=== PATIENT | male | born 1935 | race Caucasian/White ===

== ENCOUNTER 2020-06-20 15:10 | Day surgery (SDCO) | payer MEDICARE, OTHER ==
[~2020-06-20 15:10] MED LIST: LIPITOR20 MG PO; METFORMIN HCL500 MG PO; MICRONASE5 MG PO; ZESTRIL5 MG PO; ZOFRAN ODT4 MG PO
[2020-06-20 16:12] LABS: BASOPHIL 0.4 % (0-2); EOSINOPHIL 1.6 % (0-7); HCT 36.3 % (42.0-52.0); HGB 11.4 g/dl (13.2-18.0); MCH 28.6 pg (25.0-31.0); MCHC 31.4 g/dL (32.0-36.0); MCV 91.2 fL (78.0-100.0); MONOCYTE 5.3 % (0-12); MPV 10.1 fL (6.0-9.5); NEUTROPHIL 83.4 % (41-80); NRBC 0; PLT 193 K/uL (150-400); RBC 3.98 M/uL (4.70-6.00); RDW 14.4 % (11.5-14.0); WBC 11.8 K/uL (4.0-10.5)
[2020-06-20 16:16] LABS: INR 1.1 (0.9-1.2); PROTHROMBIN TIME 13.5 SECONDS (11.4-13.6); PTT 26.3 SECONDS (22.2-34.7)
[2020-06-20 16:26] LABS: ALBUMIN 3.4 g/dL (3.4-5.0); BILIRUBIN - TOTAL 0.5 mg/dL (0.2-1.0); BUN/CREAT RATIO (CALC) 17.3 RATIO; CREATININE 1.1 mg/dL (0.67-1.17); GLOBULIN (CALCULATION) 3.7 g/dL; POTASSIUM 4.5 mmol/L (3.5-5.1); TOTAL PROTEIN 7.1 g/dL (6.4-8.2)
[2020-06-20 16:30] LABS: LACTIC ACID 1.5 mmol/L (0.4-1.9)
[2020-06-20 17:35] LABS: BILIRUBIN NEGATIVE (NEGATIVE); BLOOD NEGATIVE Ery/uL (NEGATIVE); CLARITY CLEAR (CLEAR); COLOR YELLOW (YELLOW); GLUCOSE (U) NORMAL (NORMAL); LEUKOCYTES NEGATIVE Leu/uL (NEGATIVE); NITRITE NEGATIVE (NEGATIVE); PROTEIN TRACE (LOW) mg/dL (NEGATIVE); SPECIFIC GRAVITY >=1.030 (1.001-1.030); UROBILINOGEN 0.2 mg/dL (0.2-1.0)
[2020-06-20 17:42] LABS: BACTERIA TRACE
[2020-06-20] MEDS ORDERED: MAG-OXIDE 400M400 MG PO (21:46)
[2020-06-20] MEDS ORDERED: VITAMIN D21250 MCG PO (21:49)
[2020-06-20] MEDS ORDERED: BAYER CHEWABLE81 MG PO (21:50)
[2020-06-20] MEDS ORDERED: GLIPIZIDE ER5 MG PO (21:50)
[2020-06-20] MEDS ORDERED: ANTIVERT12.5 MG PO (21:51)
[2020-06-20] MEDS ORDERED: ANTIVERT25 MG PO (21:51)
--- NOTE | 2020-06-21 04:05 | NUR ---
CALLED BY FIDEL OLSON TO SIT WITH PATIENT UPON HER INSISTANCE THAT HE NEEDED A SITTER. PATIENT HAS SLEPT THROUGH THE NIGHT AND HAS ONLY MOVED TO ADJUST HIMSELF IN THE BED. I HAVE WOKE PATIENT SEVERAL TIMES AND HE HAS BEEN COMPLIANT WITH CARE. PATIENT ALLOWED ME TO START A IV, FLUIDS, TELEMETRY MONITORING, BLOOD GLUCOSE MONITORING AND ADMINISTER MEDICATION. PATIENT WAS WOKE UP FOR AN EKG AND VITALS Q4HR, HE HAS BEEN COMPLIANT WITH CARE. PATIENT HAS NOT BEEN COMBATIVE HE HAS STATED SOME NASTY WORDS BUT HAS NOT ACTED ON ANYTHING. DESPITE HIS NASTY LANGUAGE PATIENT IS VERY PLESANT.
[2020-06-21 06:22] LABS: BASOPHIL 0.9 % (0-2); EOSINOPHIL 4.2 % (0-7); HCT 30.1 % (42.0-52.0); HGB 9.6 g/dl (13.2-18.0); LYMPHOCYTE 23.4 % (15-48); MCH 28.8 pg (25.0-31.0); MCHC 31.9 g/dL (32.0-36.0); MCV 90.4 fL (78.0-100.0); MONOCYTE 9.2 % (0-12); MPV 9.9 fL (6.0-9.5); NRBC 0; PLT 163 K/uL (150-400); RBC 3.33 M/uL (4.70-6.00); RDW 14.4 % (11.5-14.0); WBC 6.9 K/uL (4.0-10.5)
[2020-06-21 06:57] LABS: IRON % SATURATION 15.9 %SAT (20-50)
[2020-06-21 07:19] LABS: ALBUMIN 2.7 g/dL (3.4-5.0); BILIRUBIN - TOTAL 0.5 mg/dL (0.2-1.0); BUN/CREAT RATIO (CALC) 19.6 RATIO; CREATININE 1.07 mg/dL (0.67-1.17); FOLIC ACID (SERUM) 16.6 ng/mL (8.6-58.9); GLOBULIN (CALCULATION) 2.9 g/dL; POTASSIUM 4.1 mmol/L (3.5-5.1); TOTAL PROTEIN 5.6 g/dL (6.4-8.2)
--- NOTE | 2020-06-21 13:42 | NUR ---
SPOKE WITH PT. DAUGHTER, LANG SIFUENTES AND DAUGHTER WALKER. THEY WOULD LIKE [facility] . REFERRAL TO [facility] MADE THRU ABDIRAHMAN. AFFLIATIONS EXPLAINED.
== END 2020-06-21 15:42 | disposition home or self-care (01) ==
LOC: FER 15:10 → FMS 18:13
PROVIDERS: Emergency Medicine; Nurse Practitioner; ADMIT Internal Medicine
DX: I95.1 Orthostatic hypotension (principal); E86.0 Dehydration; N17.9 Acute kidney failure, unspecified; G30.9 Alzheimer's disease, unspecified; F02.80 Dementia in other diseases classified elsewhere, unspecified severity, without behavioral disturbance, psychotic disturbance, mood disturbance, and anxiety; D64.9 Anemia, unspecified; E11.9 Type 2 diabetes mellitus without complications; I10 Essential (primary) hypertension; E78.5 Hyperlipidemia, unspecified; R53.1 Weakness; R11.2 Nausea with vomiting, unspecified; K80.20 Calculus of gallbladder without cholecystitis without obstruction; Z87.891 Personal history of nicotine dependence; Z79.82 Long term (current) use of aspirin; Z79.84 Long term (current) use of oral hypoglycemic drugs; Z79.899 Other long term (current) drug therapy; Z20.822 Contact with and (suspected) exposure to COVID-19
CPT/HCPCS: 36415; 71045; 76705; 80053; 81001; 82607; 82728; 82746; 83036; 83540; 83550; 83605; 83690; 84484; 85025; 85610; 85730; 87040; 87088; 93005; 94760; 97161; 97166; 97535; G0378; J2405; J7030; J7040

== ENCOUNTER 2020-07-06 20:19 | Emergency (ER) | payer MEDICARE, OTHER ==
[~2020-07-06 20:19] MED LIST changes: +ANTIVERT12.5 MG PO; +ANTIVERT25 MG PO; +BAYER CHEWABLE81 MG PO; +GLIPIZIDE ER5 MG PO; +MAG-OXIDE 400M400 MG PO; +VITAMIN D21250 MCG PO
== END 2020-07-06 22:50 | disposition home or self-care (01) ==
LOC: FER 20:19
DX: Z04.3 Encounter for examination and observation following other accident (principal); E11.9 Type 2 diabetes mellitus without complications; G30.9 Alzheimer's disease, unspecified
CPT/HCPCS: 73522

== ENCOUNTER 2020-07-15 19:42 | Day surgery (SDCO) | payer MEDICARE, OTHER ==
[2020-07-15 20:11] LABS: BASOPHIL 0.7 % (0-2); EOSINOPHIL 4.1 % (0-7); HCT 34.3 % (42.0-52.0); HGB 10.8 g/dl (13.2-18.0); LYMPHOCYTE 15.5 % (15-48); MCH 28.3 pg (25.0-31.0); MCHC 31.5 g/dL (32.0-36.0); MONOCYTE 6.7 % (0-12); MPV 9.9 fL (6.0-9.5); NEUTROPHIL 72.6 % (41-80); NRBC 0; PLT 215 K/uL (150-400); RBC 3.81 M/uL (4.70-6.00); RDW 14.1 % (11.5-14.0); WBC 8.5 K/uL (4.0-10.5)
[2020-07-15 20:32] LABS: ALBUMIN 3.4 g/dL (3.4-5.0); BILIRUBIN - TOTAL 0.3 mg/dL (0.2-1.0); CREATININE 0.96 mg/dL (0.67-1.17); GLOBULIN (CALCULATION) 3.5 g/dL; POTASSIUM 4.8 mmol/L (3.5-5.1); TOTAL PROTEIN 6.9 g/dL (6.4-8.2)
[2020-07-15 20:34] LABS: LACTIC ACID 1.5 mmol/L (0.4-1.9)
[2020-07-15 20:43] LABS: INR 1.06 (0.9-1.2); PROTHROMBIN TIME 13.1 SECONDS (11.4-13.6); PTT 26.6 SECONDS (22.2-34.7)
[2020-07-15 21:16] LABS: CORONAVIRUS 2019 SARS-COV-2 NEGATIVE (NEGATIVE); INFLUENZA A NAA NEGATIVE (NEGATIVE)
[2020-07-16 00:36] LABS: BILIRUBIN NEGATIVE (NEGATIVE); BLOOD NEGATIVE Ery/uL (NEGATIVE); CLARITY CLEAR (CLEAR); COLOR YELLOW (YELLOW); GLUCOSE (U) NORMAL (NORMAL); LEUKOCYTES TRACE Leu/uL (NEGATIVE); NITRITE NEGATIVE (NEGATIVE); PROTEIN NEGATIVE (NEGATIVE); SPECIFIC GRAVITY >=1.030 (1.001-1.030); UROBILINOGEN 0.2 mg/dL (0.2-1.0); pH 5.5 (5.0-9.0)
[2020-07-16] MEDS ORDERED: JANUVIA50 MG PO (00:44)
[2020-07-16 00:46] LABS: AMORPHOUS URATES CRYSTALS MODERATE; BACTERIA TRACE; MUCOUS TRACE
--- NOTE | 2020-07-16 16:04 | NUR ---
07/16/20 Mr. Wagner was admitted from [facility]. He is followed by [facility] and [facility] in the past. Jeannette Sandoval, daughter / POA wishes for hime to return to with [facility] . Ms. Sandoval agreed to pay the cost for EMS transport. A referral was made to [facility]. A report was given to MS FIDEL Bragg and Dr. Patel.
--- NOTE | 2020-07-16 16:55 | NUR ---
1613 NOTIFED DAUGHTER THAT OF THE TRASFER BACK TO [facility]. 1630 NOTIFED SPRING WILLOUGHBY (DAUGHTER) THAT FAMILY WILL HAVE TO PAY FOR THE EMS TRANSPORT. PHONE NUMBER TO THE [facility] WAS GIVEN TO THE DAUGHTER. 1603 REPORT WAS CALLED TO FIDEL NOEL AT THE [facility], AWAITING THE EMS. 1655 EMS HAS ARRIVED FOR TRANSPORT TO [facility]. REPORT WAS GIVEN TO THE EMS STAFF.
== END 2020-07-16 16:55 | disposition home health service (06) ==
LOC: FER 19:42 → FMS 23:03
PROVIDERS: Emergency Medicine Emergency Medical Services; ADMIT Hospitalist
DX: R53.1 Weakness (principal); I10 Essential (primary) hypertension; E11.9 Type 2 diabetes mellitus without complications; E78.5 Hyperlipidemia, unspecified; G30.9 Alzheimer's disease, unspecified; F02.80 Dementia in other diseases classified elsewhere, unspecified severity, without behavioral disturbance, psychotic disturbance, mood disturbance, and anxiety; N39.0 Urinary tract infection, site not specified; Z98.1 Arthrodesis status; Z90.49 Acquired absence of other specified parts of digestive tract; Z96.642 Presence of left artificial hip joint; Z87.891 Personal history of nicotine dependence; Z82.49 Family history of ischemic heart disease and other diseases of the circulatory system; Z79.84 Long term (current) use of oral hypoglycemic drugs; Z79.899 Other long term (current) drug therapy; Z95.0 Presence of cardiac pacemaker; Z20.822 Contact with and (suspected) exposure to COVID-19
CPT/HCPCS: 36415; 70450; 71045; 80053; 81001; 82550; 83605; 84145; 84484; 85025; 85610; 85730; 87040; 87088; 93005; 97162; 97166; 97530-GP; 97535; G0378; J0696; J2405; J7030; U0002

== ENCOUNTER 2020-07-26 13:22 | Emergency (ER) | payer MEDICARE, OTHER ==
[~2020-07-26 13:22] MED LIST changes: +JANUVIA50 MG PO
[2020-07-26 15:05] LABS: BASOPHIL 0.5 % (0-2); EOSINOPHIL 1.6 % (0-7); HCT 34.2 % (42.0-52.0); HGB 10.7 g/dl (13.2-18.0); LYMPHOCYTE 8.5 % (15-48); MCH 28.3 pg (25.0-31.0); MCHC 31.3 g/dL (32.0-36.0); MCV 90.5 fL (78.0-100.0); MONOCYTE 5.6 % (0-12); MPV 9.7 fL (6.0-9.5); NEUTROPHIL 83.5 % (41-80); NRBC 0; PLT 222 K/uL (150-400); RBC 3.78 M/uL (4.70-6.00); RDW 13.9 % (11.5-14.0); WBC 11.8 K/uL (4.0-10.5)
[2020-07-26 15:21] LABS: BUN/CREAT RATIO (CALC) 22.7 RATIO; CREATININE 0.97 mg/dL (0.67-1.17); POTASSIUM 4.8 mmol/L (3.5-5.1)
[2020-07-26 17:26] LABS: BILIRUBIN NEGATIVE (NEGATIVE); BLOOD NEGATIVE Ery/uL (NEGATIVE); CLARITY CLEAR (CLEAR); COLOR YELLOW (YELLOW); GLUCOSE (U) NORMAL (NORMAL); LEUKOCYTES NEGATIVE Leu/uL (NEGATIVE); NITRITE NEGATIVE (NEGATIVE); PROTEIN TRACE (LOW) mg/dL (NEGATIVE)
[2020-07-26 17:37] LABS: AMORPHOUS URATES CRYSTALS TRACE; BACTERIA TRACE; MUCOUS MODERATE; URINARY RBC RARE
[2020-07-26] MEDS ORDERED: AUGMENTIN 875-1 EACH PO (18:24)
== END 2020-07-26 19:32 | disposition home or self-care (01) ==
LOC: FER 13:22
PROVIDERS: Nurse Practitioner Family
DX: J06.9 Acute upper respiratory infection, unspecified (principal); R51.9 Headache, unspecified; I10 Essential (primary) hypertension; G30.9 Alzheimer's disease, unspecified; F02.80 Dementia in other diseases classified elsewhere, unspecified severity, without behavioral disturbance, psychotic disturbance, mood disturbance, and anxiety; Z79.899 Other long term (current) drug therapy; Z95.0 Presence of cardiac pacemaker; Z20.822 Contact with and (suspected) exposure to COVID-19; Z79.84 Long term (current) use of oral hypoglycemic drugs
CPT/HCPCS: 36415; 70450; 71045; 72125; 80048; 81001; 85025; J7030; U0002

== ENCOUNTER 2020-10-30 15:56 | Day surgery (SDCO) | payer MEDICARE, OTHER ==
[~2020-10-30] VITALS: Ht 170.2 cm; Wt 76.5 kg
[~2020-10-30 15:56] MED LIST changes: +AUGMENTIN 875-1 EACH PO
[2020-10-30 16:43] LABS: BASOPHIL 0.3 % (0-2); EOSINOPHIL 1.3 % (0-7); HCT 42.3 % (42.0-52.0); HGB 13.4 g/dl (13.2-18.0); LYMPHOCYTE 7.2 % (15-48); MCH 28.5 pg (25.0-31.0); MCHC 31.7 g/dL (32.0-36.0); MCV 89.8 fL (78.0-100.0); MONOCYTE 4.4 % (0-12); MPV 9.9 fL (6.0-9.5); NEUTROPHIL 86.3 % (41-80); NRBC 0; PLT 256 K/uL (150-400); RBC 4.71 M/uL (4.70-6.00); WBC 17.3 K/uL (4.0-10.5)
[2020-10-30 16:47] LABS: INR 1.1 (0.9-1.2); PROTHROMBIN TIME 13.6 SECONDS (11.8-13.4); PTT 25.8 SECONDS (24.4-34.7)
[2020-10-30 16:56] LABS: ALBUMIN 3.5 g/dL (3.4-5.0); BILIRUBIN - TOTAL 0.6 mg/dL (0.2-1.0); BUN/CREAT RATIO (CALC) 18.6 RATIO; CREATININE 1.02 mg/dL (0.67-1.17); GLOBULIN (CALCULATION) 4.2 g/dL; POTASSIUM 4.3 mmol/L (3.5-5.1); TOTAL PROTEIN 7.7 g/dL (6.4-8.2)
[2020-10-30 16:57] LABS: LACTIC ACID 2.2 mmol/L (0.4-1.9)
[2020-10-30 17:38] LABS: BILIRUBIN NEGATIVE (NEGATIVE); BLOOD NEGATIVE Ery/uL (NEGATIVE); CLARITY CLEAR (CLEAR); COLOR YELLOW (YELLOW); GLUCOSE (U) NORMAL (NORMAL); LEUKOCYTES NEGATIVE Leu/uL (NEGATIVE); NITRITE NEGATIVE (NEGATIVE); PROTEIN TRACE (LOW) mg/dL (NEGATIVE); UROBILINOGEN 0.2 mg/dL (0.2-1.0)
[2020-10-31 06:38] LABS: BASOPHIL 0.6 % (0-2); EOSINOPHIL 1.6 % (0-7); HCT 37.8 % (42.0-52.0); HGB 11.8 g/dl (13.2-18.0); LYMPHOCYTE 13.7 % (15-48); MCH 27.9 pg (25.0-31.0); MCHC 31.2 g/dL (32.0-36.0); MCV 89.4 fL (78.0-100.0); MONOCYTE 5.2 % (0-12); MPV 9.4 fL (6.0-9.5); NEUTROPHIL 78.6 % (41-80); NRBC 0; PLT 218 K/uL (150-400); RBC 4.23 M/uL (4.70-6.00)
[2020-10-31 07:31] LABS: ALBUMIN 2.8 g/dL (3.4-5.0); BILIRUBIN - TOTAL 0.5 mg/dL (0.2-1.0); BUN/CREAT RATIO (CALC) 18.3 RATIO; CREATININE 1.04 mg/dL (0.67-1.17); GLOBULIN (CALCULATION) 3.8 g/dL; POTASSIUM 4.1 mmol/L (3.5-5.1); TOTAL PROTEIN 6.6 g/dL (6.4-8.2)
--- NOTE | 2020-10-31 10:24 | NUR ---
10/31/20 Please consider discharge or full admit. Thank You!
[2020-10-31] MEDS ORDERED: ANTIVERT25 MG PO ×2 (15:23)
[2020-11-01 06:26] LABS: BASOPHIL 0.6 % (0-2); EOSINOPHIL 2.4 % (0-7); HCT 34.6 % (42.0-52.0); HGB 10.8 g/dl (13.2-18.0); LYMPHOCYTE 18.9 % (15-48); MCH 28.2 pg (25.0-31.0); MCHC 31.2 g/dL (32.0-36.0); MCV 90.3 fL (78.0-100.0); MPV 9.8 fL (6.0-9.5); NEUTROPHIL 71.7 % (41-80); NRBC 0; PLT 214 K/uL (150-400); RBC 3.83 M/uL (4.70-6.00); RDW 15.2 % (11.5-14.0); WBC 8.4 K/uL (4.0-10.5)
[2020-11-01 07:01] LABS: BUN/CREAT RATIO (CALC) 16.3 RATIO; CREATININE 1.23 mg/dL (0.67-1.17); POTASSIUM 4.1 mmol/L (3.5-5.1)
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
[2020-11-02 07:14] LABS: BASOPHIL 0.8 % (0-2); EOSINOPHIL 4.6 % (0-7); HCT 35.3 % (42.0-52.0); MCH 28.6 pg (25.0-31.0); MCHC 31.2 g/dL (32.0-36.0); MCV 91.7 fL (78.0-100.0); MPV 10.2 fL (6.0-9.5); NEUTROPHIL 68.2 % (41-80); NRBC 0; PLT 188 K/uL (150-400); RBC 3.85 M/uL (4.70-6.00); WBC 7.2 K/uL (4.0-10.5)
[2020-11-02 07:35] LABS: BUN/CREAT RATIO (CALC) 26.9 RATIO; CREATININE 0.93 mg/dL (0.67-1.17); POTASSIUM 4.5 mmol/L (3.5-5.1)
--- NOTE | 2020-11-02 11:00 | NUR ---
FOR DISCHARGE PLEASE CALL [facility] IN [facility]. ASK FOR THE NURSE ON [facility] TO GIVE REPORT AT [phone]. FAX NUMBER FOR D/C SUMMARY IS [phone],
[2020-11-02] MEDS ORDERED: AMOX TR-K CLV1 EAC4 PO (13:16)
== END 2020-11-02 14:58 ==
LOC: FER 15:56 → FMS 18:25
PROVIDERS: Emergency Medicine; Nurse Practitioner; ADMIT Internal Medicine
DX: A41.9 Sepsis, unspecified organism (principal); K04.7 Periapical abscess without sinus; R29.810 Facial weakness; R47.81 Slurred speech; G93.41 Metabolic encephalopathy; E11.9 Type 2 diabetes mellitus without complications; I10 Essential (primary) hypertension; G30.9 Alzheimer's disease, unspecified; F02.80 Dementia in other diseases classified elsewhere, unspecified severity, without behavioral disturbance, psychotic disturbance, mood disturbance, and anxiety; E78.5 Hyperlipidemia, unspecified; Z87.891 Personal history of nicotine dependence; Z79.82 Long term (current) use of aspirin; Z79.84 Long term (current) use of oral hypoglycemic drugs; Z79.899 Other long term (current) drug therapy; Z20.822 Contact with and (suspected) exposure to COVID-19
CPT/HCPCS: 36415; 70450; 70486; 71250; 80048; 80053; 80061; 80202; 81003; 82962; 83605; 84153; 84484; 85025; 85610; 85730; 87040; 87076; 87088; 87186; 93005; 94010; 94762; 97162; 97166; 97530-GP; 97535; G0378; J1650; J2543; J3370; J7050; U0002